=== PATIENT | male | born 1980 | race Hispanic/Latino ===

== ENCOUNTER 2020-10-09 14:16 | Inpatient (IN) | payer OTHER, SELFPAY ==
[~2020-10-09 14:16] MED LIST: Iopamidol-370 76% 500 ML 1 ML ONE
[2020-10-09] MEDS ORDERED: Cefepime 2 GM VIAL ONE (14:44)
[2020-10-09 14:55] LABS: Hemoglobin 14.4 g/dL (14.0-18.0); Mean Corpuscular HGB CONC 34.7 g/dL (32.0-36.0); Mean Corpuscular Hemoglobin 30.3 pg (27.0-31.0); Mean Corpuscular Volume 87.3 fL (78.0-98.0); Mean Platelet Volume 8.8 fL (7.4-10.4); Platelet Count 185 thou/uL (130-400); RBC Distribution Width 11.1 % (11.5-14.5); Red Blood Cell (RBC) Count 4.74 mill/uL (4.70-6.10); White Blood Cell (WBC) Count 27.7 thou/uL (4.8-10.8)
[2020-10-09 15:02] LABS: INR-International Normal Ratio 1.1; PTT 34.3 sec (22.9-36.1); Prothrombin Time 14.7 sec (12.0-14.7)
[2020-10-09 15:11] LABS: ALT (SGPT) 18 U/L (8-55); AST (SGOT) 14 U/L (5-34); Albumin 4.1 g/dL (3.5-5.0); Alkaline Phosphatase 58 U/L (40-110); Anion Gap 14 mmol/L (10-20); BUN (Urea Nitrogen) 6 mg/dL (8.9-20.6); Band 4 % (5-11); Bilirubin, Total 0.9 mg/dL (0.2-1.2); Calc. Creatinine Clearance 0 mL/min (70-130); Calcium 8.6 mg/dL (7.8-10.44); Carbon Dioxide 23 mmol/L (22-29); Chloride 103 mmol/L (98-107); Globulin 3.1 g/dL (2.4-3.5); Glucose 174 mg/dL (70-105); Lymphocytes 5 % (21-51); MDiff Complete? YES; Monocytes 4 % (0-10); Neutrophil 87 % (42-75); Platelet Morphology Comment Appears Adequate; Potassium 3.1 mmol/L (3.5-5.1); Protein, Total 7.2 g/dL (6.0-8.3); RBC Morphology Normal; Sodium 137 mmol/L (136-145)
--- NOTE | 2020-10-09 15:20 | RAD ---
Portable frontal chest radiograph: 10/09/2020 COMPARISON: 05/27/2012 HISTORY: Fever, tachycardia FINDINGS: Lungs are clear. Heart and mediastinal contours appear within normal limits. IMPRESSION: No acute findings.
[2020-10-09 16:32] LABS: Bacteria/HPF None Seen HPF (None Seen); Bilirubin Negative (Negative); Blood, Urine Trace (Negative); Clarity Clear (Clear); Glucose, Urine (Dipstick) 150 mg/dL (Negative); Ketone, Urine Negative (Negative); Leukocyte 500 Leu/uL (Negative); Nitrite Negative (Negative); Protein, Urine (Dipstick) 50 mg/dL (Neg-Trace); Squamous Epithelial None Seen HPF (0-3); Urobilinogen Normal mg/dL (Less than 2); WBC/HPF Greater than 50 HPF (0-3)
[2020-10-09] MEDS ORDERED: Magnesium 2 GM/50 ML BAG (IN WATER) ONE (16:55)
[2020-10-09] MEDS ORDERED: POTASSIUM CHLORIDE IVPB SCH (17:00)
[2020-10-09] MEDS ORDERED: SODIUM CHLORIDE 0.9% IVPB SCH (17:00)
[2020-10-09] MEDS ORDERED: Potassium Chloride 40 MEQ in Sodium Chloride 0.9% 250 ML 250 ML IVPB SCH (17:45)
[2020-10-09 17:49] LABS: Lactic Acid 1.6 mmol/L (0.5-2.2)
[2020-10-09] MEDS ORDERED: Acetaminophen 650 MG Suppository PR PRN (18:33)
[2020-10-09 18:45] VITALS: BMI 29.9
[2020-10-09] MEDS ORDERED: Sodium Chloride 0.9% 1,000 ML IV SCH (18:45)
--- NOTE | 2020-10-09 20:37 | PDOC.HHP ---
Hospitalist HPI - History of Present Illness History of Present Illness: ADMISSION DATE: 10/09/2020 TIME OF ASSESSMENT: 1700 PRIMARY CARE PHYSICIAN: None CHIEF COMPLAINT: Urinary hesitancy HPI: This is a 40-year-old gentleman who presents to the emergency department with complaints of difficulty urinating for the last 3 days. He states he feels he has to strain in order to initiate a stream and denies any dysuria but reports occasional discomfort along the ventral aspect of his penis. He has not noted any erythema, swelling, lesions, or penile discharge. No hematuria. Denies any scrotal swelling, erythema, or pain. Denies any changes with his bowel movements and has not had any perineal discomfort. Denies any fevers or chills at home but has been experience generalized body aches for several weeks as well as a headache. He reports suprapubic discomfort but denies any flank pain. ROS: Denies any chest pain, palpitations or shortness of breath. No recent cough or hemoptysis. No headaches or dizziness. All other review of systems apart from what is mentioned above in HPI are negative. ED COURSE: In the emergency department the patient was noted to be febrile with a temp of 100. He also remained tachycardic in the 120s to 140s. Sats remained normal on room air. Blood pressure ranged from 99 systolic to 139 systolic. He was started on IV antibiotics for presumed urinary tract infection and received 2 g of cefepime IV. Laboratory studies noted a potassium of 3.1 and magnesium of 1.8 therefore electrolyte replacement was ordered with 2 g of magnesium sulfate and 40 mEq of potassium chloride IV. He received 2 L of normal saline. EKG done in the emergency department showed sinus tachycardia with a heart rate of 135. No ST changes or T wave abnormalities present. He had a chest x-ray done which showed no acute findings. Laboratory studies showed a white cell count of 27.7, hemoglobin 14.4, platelets 185, neutrophils 87, bands 4, sodium 137, potassium 3.1, anion gap 14, BUN 6, creatinine 0.93, GFR 90, glucose 174, lactic acid 2.8, reflex lactic acid was 1.6. Calcium 8.6, magnesium 1.8. Lipase unremarkable. Urinalysis showed clear yellow urine with 50 protein, 150 glucose, trace blood, 500 leukocyte esterase, 4-6 red blood cells and greater than 50 white blood cells. PAST MEDICAL HISTORY: None PAST SURGICAL HISTORY: None SOCIAL HISTORY: Reports drinking alcohol socially but denies any heavy alcohol consumption. Denies any tobacco use or drug use. FAMILY HISTORY: Noncontributory ALLERGIES: No known drug allergies CURRENT MEDICATIONS: None - Exam General Appearance: NAD, awake alert General - other findings: VS: Temp 100.0, BP 99/67, HR 133, RR 20, O2 sat 100% on room air. ENT: normocephalic atraumatic, no oropharyngeal lesions, moist mucosa Neck: supple, no lymphadenopathy Heart: RRR, no murmur, no gallops, no rubs, normal peripheral pulses Respiratory: CTAB, no wheezes, no rales, no ronchi, normal chest expansion Gastrointestinal: soft, non-distended, normal bowel sounds, no guarding, no rigidity, tender to palpation (right suprapubic tenderness to palpation) Extremities: no edema Skin: normal turgor, no lesions, no rashes Neurological: cranial nerve grossly intact, normal sensation to touch, no weakness, no focal deficits Musculoskeletal: normal tone, normal strength, no muscle wasting Psychiatric: normal affect, normal behavior, A&O x 3 Hospitalist Results - Labs Result Diagrams: 10/09/20 14:31 10/09/20 14:31 Lab results: WBC 27.7 thou/uL (4.8-10.8) H 10/09/20 14:31 Hgb 14.4 g/dL (14.0-18.0) 10/09/20 14:31 Hct 41.4 % (42.0-52.0) L 10/09/20 14:31 MCV 87.3 fL (78.0-98.0) 10/09/20 14:31 Plt Count 185 thou/uL (130-400) 10/09/20 14:31 Band Neuts % (Manual) 4 % (5-11) L 10/09/20 14:31 Sodium 137 mmol/L (136-145) 10/09/20 14:31 Potassium 3.1 mmol/L (3.5-5.1) L 10/09/20 14:31 Chloride 103 mmol/L (98-107) 10/09/20 14:31 Carbon Dioxide 23 mmol/L (22-29) 10/09/20 14:31 BUN 6 mg/dL (8.9-20.6) L 10/09/20 14:31 Creatinine 0.93 mg/dL (0.7-1.3) 10/09/20 14:31 Glucose 174 mg/dL (70-105) H 10/09/20 14:31 Lactic Acid 1.6 mmol/L (0.5-2.2) 10/09/20 17:23 Calcium 8.6 mg/dL (7.8-10.44) 10/09/20 14:31 Total Bilirubin 0.9 mg/dL (0.2-1.2) 10/09/20 14:31 AST 14 U/L (5-34) 10/09/20 14:31 ALT 18 U/L (8-55) 10/09/20 14:31 Alkaline Phosphatase 58 U/L (40-110) 10/09/20 14:31 Troponin I Less than 0.010 ng/mL (< 0.028) 10/09/20 19:20 C-Reactive Protein 13.74 mg/dL (= or < 0.5) H 10/09/20 19:20 Serum Total Protein 7.2 g/dL (6.0-8.3) 10/09/20 14:31 Albumin 4.1 g/dL (3.5-5.0) 10/09/20 14:31 Urine Ketones Negative mg/dL (Negative) 10/09/20 14:57 Urine Blood Trace (Negative) A 10/09/20 14:57 Urine Nitrite Negative (Negative) 10/09/20 14:57 Ur Leukocyte Esterase 500 Madhavi/uL (Negative) A 10/09/20 14:57 Urine RBC 4-6 HPF (0-3) A 10/09/20 14:57 Urine WBC Greater than 50 HPF (0-3) A 10/09/20 14:57 Ur Squamous Epith Cells None Seen HPF (0-3) 10/09/20 14:57 Urine Bacteria None Seen HPF (None Seen) 10/09/20 14:57 - Radiology Interpretation Chest x-ray Status: report reviewed by nj Hospitalist H&P A/P - Problem (1) Urinary hesitancy Code(s): R39.11 - HESITANCY OF MICTURITION Status: Acute (2) Sepsis due to undetermined organism Code(s): A41.9 - SEPSIS, UNSPECIFIED ORGANISM Status: Acute (3) Bandemia Code(s): D72.825 - BANDEMIA Status: Acute (4) Lactic acid acidosis Code(s): E87.2 - ACIDOSIS Status: Acute (5) Tachycardia Code(s): R00.0 - TACHYCARDIA, UNSPECIFIED Status: Acute (6) Electrolyte depletion Code(s): E87.8 - OTH DISORDERS OF ELECTROLYTE AND FLUID BALANCE, NEC Status: Acute - Plan Plan: Repeat EKG given persistent tachycardia despite 2L of NS given in ED Cardiac monitoring Blood cultures pending Check PSA, CRP, TSH and troponin Post-void bladder scan to assess for urine retention Tachycardia likely secondary to fever/infection Tylenol for fever Monitor electrolytes and replace as necessary Obtain CT A/P given lower abdomen discomfort to rule out other source for infection Continue IV fluids Continue IV antibiotics GI prophylaxis with famotidine CODE STATUS FULL COVID testing on admission, results pending Case discussed with Dr. Baker who agrees with plan as above.
[2020-10-09] MEDS: Acetaminophen 325 MG TAB PO PRN (20:38)
--- NOTE | 2020-10-09 21:27 | CT ---
CT Abdomen Pelvis W Con: 10/09/2020 9:15 PM CLINICAL INFORMATION: Abdominal pain with fever COMPARISON: 07/23/2012 TECHNIQUE: Multiple contiguous axial images were obtained and a CT of the abdomen and pelvis with IV contrast. Oral contrast was administered. Coronal and sagittal reformats were performed. FINDINGS: Lower Chest: within normal limits. Abdomen: Liver: within normal limits. Bile Ducts: Normal caliber. Gallbladder: No calcified gallstones. Normal caliber wall. Pancreas: within normal limits. Spleen: within normal limits. Adrenals: within normal limits. Kidneys: within normal limits. Pelvis: Reproductive Organs: No pelvic masses. Ureters: within normal limits. Bladder: within normal limits. Peritoneum: No ascites or free air, no fluid collection. Bowel: Normal caliber. Normal appendix. Mesentery and Retroperitoneum: No enlarged mesenteric or retroperitoneal lymph nodes. Vessels: Normal. Abdominal Wall: within normal limits. Bones: Within normal limits IMPRESSION: No evidence of acute intraabdominal or pelvic abnormality.
[2020-10-09] MEDS: Famotidine/PF 20 mg/2ml Vial SLOW IVP SCH (22:26)
[2020-10-10] MEDS: Piperacillin/Tazobactam 3.375 GM in Sodium Chloride 0.9% 100 ML IVPB SCH ×5 (00:10→23:47)
[2020-10-10] MEDS ORDERED: Vancomycin HCl 1.75 GM in Sodium Chloride 0.9% 500 ML IVPB SCH (00:30)
[2020-10-10 01:22] LABS: SARS-CoV-2 MS2 Positive; SARS-CoV-2 N Gene Negative; SARS-CoV-2 S Gene Negative; SARS-CoV-2 by NAA Not Detected (NotDetected); SARS-CoV-2 orf1ab Negative
[2020-10-10 04:03] LABS: #Lymphocytes 2.7 thou/uL (1.20-3.40); #Monocytes 1.2 thou/uL (0.11-0.59); %Basophils 0.1 % (0.0-1.0); %Eosinophils 0.1 % (0.0-10.0); %Lymphocytes 13.6 % (21.0-51.0); %Monocytes 6.1 % (0.0-10.0); %Neutrophils 80.2 % (42.0-75.0); Hemoglobin 12.6 g/dL (14.0-18.0); Mean Corpuscular HGB CONC 34.2 g/dL (32.0-36.0); Mean Corpuscular Hemoglobin 30.4 pg (27.0-31.0); Mean Platelet Volume 9.3 fL (7.4-10.4); Platelet Count 125 thou/uL (130-400); RBC Distribution Width 11.3 % (11.5-14.5); Red Blood Cell (RBC) Count 4.15 mill/uL (4.70-6.10)
[2020-10-10 04:27] LABS: Anion Gap 12 mmol/L (10-20); BUN (Urea Nitrogen) 6 mg/dL (8.9-20.6); Calc. Creatinine Clearance 142 mL/min (70-130); Calcium 7.8 mg/dL (7.8-10.44); Carbon Dioxide 19 mmol/L (22-29); Chloride 114 mmol/L (98-107); Glucose 101 mg/dL (70-105); Sodium 141 mmol/L (136-145)
[2020-10-10] MEDS: Acetaminophen 325 MG TAB PO PRN ×4 (05:44→22:17)
[2020-10-10] MEDS ORDERED: Vancomycin 1 GM in Premix Bag 1 BAG IVPB SCH (09:00)
[2020-10-10] MEDS: Famotidine/PF 20 mg/2ml Vial SLOW IVP SCH ×2 (09:05→20:30)
[2020-10-10] MEDS ORDERED: Vancomycin HCl 1.25 GM in Sodium Chloride 0.9% 250 ML 250 ML IVPB SCH (13:00)
--- NOTE | 2020-10-10 15:41 | PDOC.HOSPP ---
- Subjective Encounter Date: 10/10/20 Encounter Time: 15:39 Subjective: 40-year-old patient seen and examined today. He was admitted to the hospital overnight with urinary retention and hesitancy. He has evidence of urinary tract infection. He is uncircumcised and likely this is a cause of the UTI. Urine analysis and culture are collected and pending. He is appropriately on IV antibiotics. - Objective Vital Signs & Weight: Vital Signs (12 hours) Temp Pulse Resp BP Pulse Ox 10/10/20 11:13 98.5 F 104 H 19 123/79 97 10/10/20 08:00 98.9 F 88 18 100/72 96 10/10/20 05:44 100.7 F H 10/10/20 04:00 99.7 F H 109 H 18 103/66 96 Weight Weight 169 lb 6.4 oz I&O: 10/09/20 10/10/20 10/11/20 06:59 06:59 06:59 Intake Total 930 Output Total 880 Balance 50 Result Diagrams: 10/10/20 03:14 10/10/20 03:13 Radiology Reviewed by me: Yes EKG Reviewed by me: Yes Hospitalist ROS - Review of Systems Constitutional: reports: weakness Respiratory: reports: shortness of breath, SOB with excertion Gastrointestinal: reports: nausea Neurological: reports: weakness - Medication Medications: Active Medications Generic Name Dose Route Start Last Admin Trade Name Freq PRN Reason Stop Dose Admin Acetaminophen 650 mg 10/09/20 18:33 10/10/20 13:34 Acetaminophen 325 Mg Tab PO 650 mg Q4H PRN Administration Headache/Fever/Mild Pain (1-3) Famotidine 20 mg 10/09/20 21:00 10/10/20 09:05 Famotidine/Pf 20 Mg/2ml Vial SLOW IVP 20 mg Q12HR GHASSAN Administration Piperacillin Sod/Tazobactam 100 mls @ 200 mls/hr 10/09/20 23:59 10/10/20 11:56 Sod 3.375 gm/ Sodium Chloride IVPB 100 mls Q6HR GHASSAN Administration - Exam General Appearance: awake alert, ill appearing Eye: PERRL ENT: normocephalic atraumatic Neck: supple Respiratory: CTAB Gastrointestinal: soft, non-tender Neurological: cranial nerve grossly intact Musculoskeletal: normal tone, normal strength, no muscle wasting Psychiatric: normal affect, normal behavior, A&O x 3 Hosp A/P (1) UTI (urinary tract infection) Status: Acute Qualifiers: Urinary tract infection type: acute cystitis (2) Sepsis Code(s): A41.9 - SEPSIS, UNSPECIFIED ORGANISM Status: Acute Qualifiers: Severe sepsis shock status: without septic shock - Plan old records reviewed/req, continue antibiotics, PT/OT, out of bed/ambulate 1) .UTI Antibiotics as above. 2)Sepsis. Secondary to above. Continue antibiotics as above.
--- NOTE | 2020-10-10 18:46 | EKG ---
Test Reason : Blood Pressure : / mmHG Vent. Rate : 134 BPM Atrial Rate : 134 BPM P-R Int : 132 ms QRS Dur : 092 ms QT Int : 282 ms P-R-T Axes : 046 034 027 degrees QTc Int : 421 ms Sinus tachycardia Otherwise normal ECG No previous ECGs available Confirmed by DR. Michelle LARA MD ([id number]) on 10/10/2020 6:46:20 PM Referred By: ABDI Confirmed By:DR. Michelle LARA MD
[2020-10-10] MEDS ORDERED: Guaifenesin DM 100-10/5 ML UDCUP PO PRN (19:51)
[2020-10-11] MEDS: Acetaminophen 325 MG TAB PO PRN ×2 (03:37→11:45)
[2020-10-11 05:36] LABS: #Lymphocytes 0.7 thou/uL (1.20-3.40); #Monocytes 0.5 thou/uL (0.11-0.59); #Neutrophils 6.2 thou/uL (1.40-6.50); %Basophils 0.1 % (0.0-1.0); %Eosinophils 0.1 % (0.0-10.0); %Lymphocytes 9.7 % (21.0-51.0); %Monocytes 6.5 % (0.0-10.0); %Neutrophils 83.5 % (42.0-75.0); Hemoglobin 12.8 g/dL (14.0-18.0); Mean Corpuscular HGB CONC 32.7 g/dL (32.0-36.0); Mean Corpuscular Hemoglobin 28.9 pg (27.0-31.0); Mean Corpuscular Volume 88.2 fL (78.0-98.0); Mean Platelet Volume 9.5 fL (7.4-10.4); Platelet Count 138 thou/uL (130-400); RBC Distribution Width 11.2 % (11.5-14.5); Red Blood Cell (RBC) Count 4.42 mill/uL (4.70-6.10); White Blood Cell (WBC) Count 7.5 thou/uL (4.8-10.8)
[2020-10-11] MEDS: Piperacillin/Tazobactam 3.375 GM in Sodium Chloride 0.9% 100 ML IVPB SCH (05:43)
[2020-10-11 05:57] LABS: Anion Gap 13 mmol/L (10-20); BUN (Urea Nitrogen) 8 mg/dL (8.9-20.6); Calc. Creatinine Clearance 106 mL/min (70-130); Calcium 8.4 mg/dL (7.8-10.44); Carbon Dioxide 22 mmol/L (22-29); Chloride 108 mmol/L (98-107); Glucose 121 mg/dL (70-105); Potassium 3.7 mmol/L (3.5-5.1); Sodium 139 mmol/L (136-145)
[2020-10-11 08:16] LABS: % Free PSA 24.9 % (.); Total PSA 34.6 ng/mL (0.0-4.0)
[2020-10-11] MEDS: Famotidine/PF 20 mg/2ml Vial SLOW IVP SCH ×2 (08:43→20:53)
--- NOTE | 2020-10-11 15:19 | PDOC.HOSPP ---
- Subjective Encounter Date: 10/11/20 Encounter Time: 15:18 Subjective: He is being treated for urinary tract infection. Cultures collected are negative to date. He reported some fever whenever he gets the Zosyn. I will de-escalate antibiotics to Levaquin once daily. We will follow the cultures to completion. He is a potential discharge hopefully over the next 48 hours. - Objective Vital Signs & Weight: Vital Signs (12 hours) Temp Pulse Resp BP Pulse Ox 10/11/20 12:00 97.9 F 89 17 108/70 96 10/11/20 08:00 98.5 F 77 18 110/73 96 10/11/20 03:37 101.9 F H 101 H 16 123/83 97 Weight Weight 171 lb 8 oz I&O: 10/10/20 10/11/20 10/12/20 06:59 06:59 06:59 Intake Total 930 1560 Output Total 880 175 Balance 50 1385 Result Diagrams: 10/11/20 04:15 10/11/20 04:15 Radiology Reviewed by me: Yes Hospitalist ROS - Review of Systems Constitutional: reports: fever, chills, malaise Gastrointestinal: reports: nausea Neurological: reports: weakness - Medication Medications: Active Medications Generic Name Dose Route Start Last Admin Trade Name Freq PRN Reason Stop Dose Admin Acetaminophen 650 mg 10/09/20 18:33 10/11/20 11:45 Acetaminophen 325 Mg Tab PO 650 mg Q4H PRN Administration Headache/Fever/Mild Pain (1-3) Famotidine 20 mg 10/09/20 21:00 10/11/20 08:43 Famotidine/Pf 20 Mg/2ml Vial SLOW IVP 20 mg Q12HR GHASSAN Administration Flavoxate HCl 100 mg 10/10/20 21:00 10/11/20 14:23 Flavoxate Hcl 100 Mg Tab PO 100 mg TID GHASSAN Administration Guaifenesin/Dextromethorphan 15 ml 10/10/20 19:51 10/10/20 20:30 Guaifenesin Dm 100-10/5 Ml Udcup PO 15 ml Q4H PRN Administration Cough Levofloxacin 750 mg/ Device 150 mls @ 100 mls/hr 10/11/20 09:15 10/11/20 11:29 IVPB 150 mls Q24HR GHASSAN Administration Sodium Chloride 10 ml 10/09/20 18:33 10/10/20 20:30 Flush - Normal Saline 10 Ml Syringe IVF 10 ml Q12HR PRN Administration Saline Flush - Exam General Appearance: NAD, awake alert Eye: PERRL, anicteric sclera ENT: normocephalic atraumatic, no oropharyngeal lesions Neck: supple, symmetric, no JVD, no thyromegaly Heart: RRR, no murmur, no gallops, no rubs, normal peripheral pulses Respiratory: CTAB, no wheezes, no rales, no ronchi Gastrointestinal: soft, non-tender, non-distended, normal bowel sounds Neurological: cranial nerve grossly intact, normal sensation to touch Psychiatric: normal affect, normal behavior, A&O x 3 Hosp A/P (1) UTI (urinary tract infection) Status: Acute Qualifiers: Urinary tract infection type: acute cystitis Plan: Urine cultures without any growth so far. We will continue antibiotics. (2) Sepsis Code(s): A41.9 - SEPSIS, UNSPECIFIED ORGANISM Status: Acute Qualifiers: Severe sepsis shock status: without septic shock - Plan continue antibiotics, PT/OT 1) .UTI Antibiotics as above. 2)Sepsis. Secondary to above. Continue antibiotics as above.
[2020-10-12] MEDS: Acetaminophen 325 MG TAB PO PRN ×2 (00:08→09:04)
[2020-10-12] MEDS: Famotidine/PF 20 mg/2ml Vial SLOW IVP SCH (09:04)
[2020-10-12 11:05] VITALS: BP 115/82; TEMP 97.4
--- NOTE | 2020-10-12 16:59 | PDOC.DS.DS ---
Provider - Provider Date of Admission: 10/09/20 17:27 Date of Discharge: 10/12/20 Admitting Provider: Joseph John MD Consultations: None Primary Care Physician: Dwight Mathew MD Course - Hospital Course Hospital Course: This is a 40-year-old patient who presented to the hospital with urinary retention and dysuria. He was found to be septic secondary to urinary tract infection on admission. He was placed in the hospital for IV antibiotics. His urine and blood cultures were both negative during the course of his hospitalization. He is uncircumcised and likely this is the etiology of his UTI. He was treated with appropriate IV antibiotics. He felt well by the third day of hospitalization and was subsequently discharged home with oral antibiotics. He will finish up Levaquin at home for the next 7 days. He was discharged in a stable condition. Resuscitation Status: 10/09/20 18:33 Resuscitation Status Routine Co-Sign Provider: Resuscitation Status: FULL: Full Resuscitation - Labs Lab Results: 10/11/20 04:15 10/11/20 04:15 Abnormal Lab Results - Last 48 hrs 10/09/20 19:20: Total PSA 34.6 H 10/11/20 04:15: Chloride 108 H, BUN 8 L 10/11/20 04:15: RBC 4.42 L, Hgb 12.8 L, Hct 39.0 L, RDW 11.2 L, Neutrophils % 83.5 H, Lymphocytes % 9.7 L, Lymphocytes # 0.7 L Microbiology - Entire Visit 10/10/20 12:05 Urine clean catch Urine Culture - Final NO GROWTH AT 48 HOURS 10/09/20 14:44 Venous blood - Right Arm Blood Culture - Preliminary NO GROWTH AT 48 HOURS 10/09/20 14:30 Venous blood - Left Hand Blood Culture - Preliminary NO GROWTH AT 48 HOURS - Physical Exam Vitals: Vital Signs (12 hours) Temp Pulse Resp BP Pulse Ox 10/12/20 11:04 97.4 F L 77 16 115/82 97 Weight Weight 171 lb 8 oz Physical Exam: The patient was seen and examined on the day of discharge. Problem - Problem (1) UTI (urinary tract infection) Status: Acute Qualifiers: Urinary tract infection type: acute pyelonephritis Qualified Code(s): N10 - Acute pyelonephritis (2) Sepsis Code(s): A41.9 - SEPSIS, UNSPECIFIED ORGANISM Status: Acute Qualifiers: Severe sepsis shock status: without septic shock - Time spent with Patient (mins): 30 Plan - Discharge Medications Prescriptions: Levofloxacin [Levaquin] 750 mg PO DAILY #7 tab flavoxATE HCl [Urispas] 100 mg PO TID #30 tab Home Medications: Medication Instructions Recorded Confirmed Type Acetaminophen [Tylenol Regular 650 mg PO PRN PRN 10/10/20 10/10/20 History Strength] Dm Hb/PE/Acetaminophen/Chlorph 1 capsule PO PRN PRN 10/10/20 10/10/20 History [Anali[place] Plus Cough & Cold] Levofloxacin [Levaquin] 750 mg PO DAILY #7 tab 10/12/20 Rx flavoxATE HCl [Urispas] 100 mg PO TID #30 tab 10/12/20 Rx Allergies: No Known Allergies Allergy (Unverified 10/09/20 16:59) - Discharge Instructions Activity:: Activity as Tolerated Nourishment:: Regular Diet Therapies:: Not Applicable Equipment/Supplies:: Not Applicable - Follow up Plan Referrals: Dwight Mathew MD [Primary Care Provider] - 7 Days (Follow up with your primary care provider within 7 days. ) Disposition: HOME Quality - Care Measures CORE MEASURES:: N/A
== END 2020-10-12 13:03 | disposition home or self-care (01) | DRG 872 ==
LOC: ERS 14:16 → 2NO 17:27
PROVIDERS: ADMIT Internal Medicine; ATTEND Hospitalist
DX: A41.9 Sepsis, unspecified organism (principal); N39.0 Urinary tract infection, site not specified; E87.2 Acidosis; R39.11 Hesitancy of micturition; E87.8 Other disorders of electrolyte and fluid balance, not elsewhere classified; Z20.828 Contact with and (suspected) exposure to other viral communicable diseases; E87.6 Hypokalemia; R65.20 Severe sepsis without septic shock
CPT/HCPCS: 36415; 71045; 74177; 80048; 80053; 81003; 81015; 83605; 83735; 84153; 84154; 84443; 84484; 85025; 85610; 85730; 86140; 87040; 87086; 87635; 93005; 93010; 94760; J0692; J1956; J2543; J3370; J3475; J3480; J3490; J7030; J7050; Q9967; S0028; U0003